=== PATIENT | female | born 1960 | race Caucasian/White ===

== ENCOUNTER 2017-02-03 20:36 | Emergency (ER) | payer BC, OTHER ==
[2017-02-03 21:07] VITALS: BP 110/80
[2017-02-03] MEDS ORDERED: predniSONE TAB* 20 MG PO ONE (21:14)
--- NOTE | 2017-02-03 21:19 | UC ---
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 - History of Current Complaint Chief Complaint: UCSkin Time Seen by Provider: 02/03/17 21:07 Stated Complaint: RASH Hx Obtained From: Patient Onset/Duration: Gradual Onset Skin Exposure Onset/Duration: Days Ago Timing: Constant Onset Severity: Mild Current Severity: Moderate Pain Intensity: 0 Pain Scale Used: 0-10 Numeric Location: Diffuse - HEAD AND NECK > ARMS Character: Pruritus, Raised Aggravating: Touch Alleviating: OTC Meds Associated Signs & Symptoms: Positive: Rash - Allergy/Home Medications Allergies/Adverse Reactions: Allergies Allergy/AdvReac Type Severity Reaction Status Date / Time No Known Allergies Allergy Verified 02/03/17 21:00 Home Medications: Home Medications Conjugated Estrogens-Medroxypr [Prempro] 1 tab PO DAILY 02/03/17 [History Confirmed 02/03/17] Review of Systems Constitutional: Negative Skin: Rash Eyes: Negative ENT: Negative Respiratory: Negative Cardiovascular: Negative Gastrointestinal: Negative Genitourinary: Negative Motor: Negative Neurovascular: Negative Musculoskeletal: Negative Neurological: Negative Psychological: Negative All Other Systems Reviewed And Are Negative: Yes PMH/Surg Hx/FS Hx/Imm Hx Previously Healthy: Yes - Surgical History Surgical History: Yes Surgery Procedure, Year, and Place: shoulder surgery - Family History Known Family History: Negative: Cardiac Disease, Hypertension, Diabetes - Social History Alcohol Use: Daily Alcohol Amount: 1-2 wine a day Substance Use Type: None Smoking Status (MU): Never Smoked Tobacco - Immunization History Most Recent Influenza Vaccination: none Physical Exam Triage Information Reviewed: Yes Appearance: Well-Appearing, No Pain Distress, Well-Nourished Vital Signs: Initial Vital Signs Temp 97.4 F 02/03/17 21:01 Pulse 57 02/03/17 21:01 Resp 16 02/03/17 21:01 BP 110/80 02/03/17 21:01 Pulse Ox 100 02/03/17 21:01 Eyes: Positive: Conjunctiva Clear ENT: Negative: Hearing grossly normal, Nasal congestion, Nasal drainage, Trismus , Muffled/hoarse voice Neck: Positive: Supple Respiratory: Positive: Lungs clear, Normal breath sounds, No respiratory distress, No accessory muscle use Cardiovascular: Positive: RRR, No Murmur Musculoskeletal: Positive: ROM Intact, No Edema Neurological: Positive: Alert Psychological Exam: Normal Skin Exam: Other - RASH C/W CONTACT DERMATITIS, FACE/NECK ARMS Course/Dx - Differential Diagnoses - Skin Complaint Differential Diagnoses: Contact Dermatitis - Diagnoses Provider Diagnoses: CONTACT DERMATITIS Discharge - Discharge Plan Condition: Stable Disposition: HOME Prescriptions: predniSONE TAB* [Deltasone TAB*] 10 - 60 mg PO DAILY #43 tab Patient Education Materials: Contact Dermatitis (ED) Additional Instructions: PREDNISONE TAPER DIRECTED BENADRYL IF NEEDED FOR ITCHING RECHECK FOR NEW OR WORSENING SYMPTOMS
== END 2017-02-03 21:40 | disposition home or self-care (01) ==
LOC: UCEAST 20:36
DX: L25.9 Unspecified contact dermatitis, unspecified cause (principal)
CPT/HCPCS: 99202; G0463; J7512